=== PATIENT | female | born 1995 | race Caucasian/White ===

== ENCOUNTER 2016-07-20 22:51 | Emergency (ER) | payer BC ==
[2016-07-20] MEDS ORDERED: BUSPIRONE HCL10 MG (23:19)
[2016-07-20] MEDS ORDERED: ZOLOFT (23:19)
[2016-07-20] MEDS ORDERED: SEROQUEL100 MG (23:19)
[2016-07-20] MEDS ORDERED: OMNICEF (23:20)
== END 2016-07-21 01:30 | disposition home or self-care (01) ==
LOC: SED 22:51
DX: E86.0 Dehydration (principal); R55 Syncope and collapse; F17.200 Nicotine dependence, unspecified, uncomplicated; F32.9 Major depressive disorder, single episode, unspecified; F41.9 Anxiety disorder, unspecified
CPT/HCPCS: 82947; 99283; 99284